=== PATIENT | female | born 1980 | race Caucasian/White ===

== ENCOUNTER 2021-12-27 05:01 | Emergency (ER) | payer BC, OTHER ==
[~2021-12-27] VITALS: Ht 157.5 cm; Wt 97.1 kg
[2021-12-27 05:31] VITALS: BP_SYST 147
--- NOTE | 2021-12-27 05:34 | NUR ---
Patient triaged and placed in waiting room. VS checked and patient appears in no acute distress at this time. Awaiting available bed, and MD notified of need for MSE.
--- NOTE | 2021-12-27 05:40 | NUR ---
Patient ambulatory to bed hallway 1 for evaluation
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
[2021-12-27 06:07] VITALS: BP_SYST 147
[2021-12-27] MEDS ORDERED: PHEN-726 PO (06:09)
[2021-12-27] MEDS ORDERED: NITR-85 PO (06:09)
--- NOTE | 2021-12-27 06:18 | NUR ---
PT DISCHARGED WITH [facility]EC[facility] INSTRUCTIONS AND PRESRIPTION, PT ENCOURAGED TO CONSUME FLUIDS AND FOLLOW UP WITH PRIMARY CARE DOCTOR. ALL QUESTIONS ANSWERED.
== END 2021-12-27 06:22 | disposition home or self-care (01) ==
LOC: SED 05:01
DX: N30.00 Acute cystitis without hematuria (principal); Z79.899 Other long term (current) drug therapy
CPT/HCPCS: 99283